=== PATIENT | male | born 1960 | race Caucasian/White ===

== ENCOUNTER 2024-12-18 17:38 | Emergency (ER) | payer MEDICAID ==
[~2024-12-18] VITALS: Ht 175.3 cm; Wt 82.0 kg
[2024-12-18 17:41] VITALS: O2SAT 96
[2024-12-18] MEDS: IBUPROFEN 400MG TABLET PO ONE (19:30)
[2024-12-18] MEDS ORDERED: IBUP-2028 MT (21:51)
[2024-12-18 22:24] VITALS: BP 155/88; PULSE 97; RESP 18; TEMP 37.2; O2SAT 96
== END 2024-12-18 22:25 | disposition home or self-care (01) ==
LOC: ER 17:38
DX: R51.9 Headache, unspecified (principal); M54.9 Dorsalgia, unspecified; M54.50 Low back pain, unspecified; E11.9 Type 2 diabetes mellitus without complications; E78.00 Pure hypercholesterolemia, unspecified; I10 Essential (primary) hypertension; V43.52XA Car driver injured in collision with other type car in traffic accident, initial encounter; Y93.89 Activity, other specified; Y92.410 Unspecified street and highway as the place of occurrence of the external cause; Y99.8 Other external cause status
CPT/HCPCS: 72131; 99284